=== PATIENT | female | born 1950 | race Caucasian/White ===

== ENCOUNTER 2022-02-12 21:18 | Emergency (ER) | payer MEDICARE, OTHER ==
[~2022-02-12] VITALS: Ht 154.9 cm; Wt 72.3 kg
[2022-02-12 23:00] VITALS: TEMP 97.1
[2022-02-13 01:05] VITALS: BP 144/78; PULSE 76
== END 2022-02-13 01:05 | disposition home or self-care (01) ==
LOC: COL.ER 21:18
DX: S63.502A Unspecified sprain of left wrist, initial encounter (principal); S40.012A Contusion of left shoulder, initial encounter; Z28.310 Unvaccinated for COVID-19; W10.9XXA Fall (on) (from) unspecified stairs and steps, initial encounter; Y93.01 Activity, walking, marching and hiking